=== PATIENT | female | born 1995 | race Caucasian/White ===

== ENCOUNTER 2021-01-04 15:31 | Outpatient (CLI) | payer MEDICAID ==
[~2021-01-04 15:31] MED LIST: ACET325T14 PO; ACET650S21 PO; DOCU-131 PO; IBUP-1222 PO; OXYC1TAB12 PO; PREN-3 PO
[2021-01-04] MEDS ORDERED: ACETAMINOPHEN 500 MG TABLET ONE (17:00)
== END 2021-01-04 18:01 | disposition home or self-care (01) ==
LOC: LDOP 15:31
PROVIDERS: ATTEND Obstetrics & Gynecology
DX: Z34.93 Encounter for supervision of normal pregnancy, unspecified, third trimester (principal); Z3A.30 30 weeks gestation of pregnancy
CPT/HCPCS: 59025